=== PATIENT | male | born 1935 | race Caucasian/White ===

== ENCOUNTER 2024-12-14 01:23 | Inpatient (IN) | payer MEDICARE, SELFPAY ==
[2024-12-14 04:07] LABS: #Basophils Less than 0.03 10x3/uL (0.0-0.2); #Eosinophils Less than 0.03 10x3/uL (0.0-0.7); #Monocytes 0.49 10x3/uL (0.11-0.59); #Neutrophils 6.48 10x3/uL (1.40-6.50); %Basophils 0.1 % (0.0-1.0); %Eosinophils 0.0 % (0.0-10.0); %Lymphocytes 8.6 % (21.0-51.0); %Monocytes 6.4 % (0.0-10.0); %Neutrophils 84.5 % (42.0-75.0); Hematocrit 34.2 % (42.0-52.0); Hemoglobin 11.0 g/dL (14.0-18.0); Mean Corpuscular Hemoglobin 28.4 pg (27.0-31.0); Mean Corpuscular Volume 88.1 fL (78.0-98.0); Platelet Count 156 10x3/uL (130-400); Red Blood Cell (RBC) Count 3.88 mill/uL (4.70-6.10); White Blood Cell (WBC) Count 7.67 10x3/uL (4.8-10.8)
[2024-12-14 04:32] LABS: ALT (SGPT) 176 U/L (Less than 45); AST (SGOT) 219 U/L (11-34); Albumin 3.5 g/dL (3.1-4.5); Alkaline Phosphatase 73 U/L (40-110); Anion Gap 19 mmol/L (10-20); BUN (Urea Nitrogen) 16 mg/dL (8.4-25.7); Bilirubin, Total 1.9 mg/dL (0.3-1.2); Calc. Creatinine Clearance 0 mL/min (70-130); Calcium 8.7 mg/dL (7.8-10.44); Carbon Dioxide 16 mmol/L (23-31); Chloride 89 mmol/L (98-107); Globulin 3.8 g/dL (2.4-3.5); Glucose 98 mg/dL (83-110); Potassium 4.5 mmol/L (3.5-5.1); Sodium 119 mmol/L (136-145)
[2024-12-14 06:11] LABS: Actual Bicarbonate (HCO3v) 16.2 mEq/L (22-28); Analyzer IN Cardio ER; Base Excess -8.6 mEq/L (-2.0 to +3.0); Calcium, Ionized (venous) 1.03 mmol/L (1.16-1.32); Chloride (VBG) 88 mmol/L (98-106); Hematocrit-VBG 36 % (42.0-52.0); Hemoglobin (Hb) 12.3 g/dL (12.6-17.4); Potassium (VBG) 4.80 mmol/L (3.70-5.30); Sodium 121 mmol/L (133-146)
[2024-12-14 06:51] LABS: Osmolality, Serum 256 mOsm/kg (280-301)
[2024-12-14 06:59] LABS: Anion Gap 19 mmol/L (10-20); BUN (Urea Nitrogen) 18 mg/dL (8.4-25.7); Calc. Creatinine Clearance 0 mL/min (70-130); Calcium 8.6 mg/dL (7.8-10.44); Carbon Dioxide 12 mmol/L (23-31); Chloride 90 mmol/L (98-107); Glucose 86 mg/dL (83-110); Potassium 5.0 mmol/L (3.5-5.1); Sodium 116 mmol/L (136-145)
[2024-12-14] MEDS: Admixture Fee 1 EACH in Sodium Chloride 3% 100 ML IVPB SCH (07:06)
[2024-12-14 07:59] VITALS: BMI 35.6
[2024-12-14] MEDS ORDERED: VANC IVPB PRN (08:45)
[2024-12-14 08:57] LABS: Glucose, Urine (Dipstick) Negative (Negative); Leukocyte Negative (Negative); Protein, Urine (Dipstick) 30 mg/dL (Neg-Trace); Specific Gravity, Urine Greater/Equal 1.030 (1.005-1.030)
[2024-12-14 09:11] LABS: Bacteria/HPF 4+ HPF (None Seen); CAUTI Indications for Culture Alt mental st,lethar
[2024-12-14 09:12] LABS: Urine Culture Reflex No No
[2024-12-14 09:45] LABS: Osmolality, Urine 422 mOsm/kg (50-1200)
[2024-12-14 09:58] LABS: INR-International Normal Ratio 2.8; PTT 40.1 sec (22.9-36.1); Prothrombin Time 29.8 sec (12.0-14.7)
[2024-12-14] MEDS ORDERED: Iopamidol-370 76% 500 ML MDV (1 ML CHARGE) ONE (10:43)
[2024-12-14] MEDS: VANCOMYCIN 2 GRAM/400 ML BAG 2 GM in Premix 1 BAG IVPB SCH (10:59)
[2024-12-14] MEDS: Vancomycin 1 GM in Premix 1 BAG IVPB SCH (11:28)
[2024-12-14 11:34] LABS: Anion Gap 25 mmol/L (10-20); BUN (Urea Nitrogen) 20 mg/dL (8.4-25.7); Calc. Creatinine Clearance 68 mL/min (70-130); Calcium 8.8 mg/dL (7.8-10.44); Carbon Dioxide 10 mmol/L (23-31); Chloride 90 mmol/L (98-107); Glucose 65 mg/dL (83-110); Potassium 5.0 mmol/L (3.5-5.1); Sodium 120 mmol/L (136-145)
[2024-12-14] MEDS ORDERED: Glucagon 1 MG/ML KIT IM PRN (11:59)
[2024-12-14 12:53] LABS: Base Excess -10.0 mEq/L (-2.0 to +3.0); Calcium, Ionized (venous) 1.00 mmol/L (1.16-1.32); Chloride (VBG) 90 mmol/L (98-106); Hematocrit-VBG 34 % (42.0-52.0); Hemoglobin (Hb) 11.4 g/dL (12.6-17.4); Potassium (VBG) 4.56 mmol/L (3.70-5.30); Sodium 121 mmol/L (133-146)
[2024-12-14 12:56] LABS: Actual Bicarbonate (HCO3v) 14.3 mEq/L (22-28)
[2024-12-14 13:17] LABS: #Basophils Less than 0.03 10x3/uL (0.0-0.2); #Eosinophils Less than 0.03 10x3/uL (0.0-0.7); #Monocytes 0.96 10x3/uL (0.11-0.59); #Neutrophils 10.98 10x3/uL (1.40-6.50); %Basophils 0.1 % (0.0-1.0); %Eosinophils 0.0 % (0.0-10.0); %Lymphocytes 4.8 % (21.0-51.0); %Monocytes 7.6 % (0.0-10.0); %Neutrophils 87.0 % (42.0-75.0); Hematocrit 30.5 % (42.0-52.0); Hemoglobin 10.0 g/dL (14.0-18.0); Mean Corpuscular Hemoglobin 29.2 pg (27.0-31.0); Mean Corpuscular Volume 88.9 fL (78.0-98.0); Platelet Count 124 10x3/uL (130-400); Red Blood Cell (RBC) Count 3.43 mill/uL (4.70-6.10); White Blood Cell (WBC) Count 12.61 10x3/uL (4.8-10.8)
[2024-12-14 13:30] LABS: ALT (SGPT) 1045 U/L (Less than 45); AST (SGOT) 1497 U/L (11-34); Albumin 3.2 g/dL (3.1-4.5); Alkaline Phosphatase 64 U/L (40-110); Bilirubin, Direct 1.4 mg/dL (0.1-0.3); Bilirubin, Total 2.2 mg/dL (0.3-1.2)
[2024-12-14 13:44] LABS: ALT (SGPT) 1054 U/L (Less than 45); AST (SGOT) 1495 U/L (11-34); Albumin 3.2 g/dL (3.1-4.5); Alkaline Phosphatase 65 U/L (40-110); Anion Gap 21 mmol/L (10-20); Anion Gap 22 mmol/L (10-20); BUN (Urea Nitrogen) 20 mg/dL (8.4-25.7); Bilirubin, Total 2.2 mg/dL (0.3-1.2); Calc. Creatinine Clearance 71 mL/min (70-130); Calc. Creatinine Clearance 72 mL/min (70-130); Calcium 8.4 mg/dL (7.8-10.44); Carbon Dioxide 12 mmol/L (23-31); Carbon Dioxide 13 mmol/L (23-31); Chloride 90 mmol/L (98-107); Globulin 3.2 g/dL (2.4-3.5); Glucose 65 mg/dL (83-110); Glucose 66 mg/dL (83-110); Potassium 4.6 mmol/L (3.5-5.1); Potassium 4.7 mmol/L (3.5-5.1); Sodium 119 mmol/L (136-145)
[2024-12-14] MEDS: Pantoprazole 40 MG VIAL IVP SCH ×2 (15:00→20:06)
[2024-12-14 16:50] LABS: Hep A IgM AB NONREACTIVE (NonReactive); Hep A IgM S/CO 0.12 S/CO (0-0.79); Hep B Core IgM Index 0.08 S/CO (0-0.79); Hep B Surf Ag NONREACTIVE S/CO (NonReactive); Hep C IgG Ab NONREACTIVE S/CO (NonReactive); Hep C Index 0.10 S/CO (0-0.79)
[2024-12-14 17:04] LABS: Cocaine Metabolite Screen Negative (Negative); THC/Cannabinoid Screen Negative (Negative); Tricyclic Screen Negative (Negative)
[2024-12-14 17:58] LABS: Anion Gap 24 mmol/L (10-20); BUN (Urea Nitrogen) 22 mg/dL (8.4-25.7); Calc. Creatinine Clearance 65 mL/min (70-130); Calcium 9.0 mg/dL (7.8-10.44); Carbon Dioxide 12 mmol/L (23-31); Chloride 91 mmol/L (98-107); Glucose 57 mg/dL (83-110); Potassium 5.1 mmol/L (3.5-5.1); Sodium 122 mmol/L (136-145)
[2024-12-14] MEDS: Furosemide 40 MG (4 mL) VIAL SLOW IVP SCH (18:05)
[2024-12-14] MEDS: Dextrose 50% Abboject 50 ML SYRINGE SLOW IVP PRN (18:05)
[2024-12-14] MEDS: Vancomycin HCl 750 MG in Sodium Chloride 0.9% 250 ML 250 ML IVPB SCH (21:59)
[2024-12-15 05:42] LABS: Vancomycin, Random 19.9 ug/mL (See Comment)
[2024-12-15 05:45] LABS: ALT (SGPT) 1688 U/L (Less than 45); AST (SGOT) 2422 U/L (11-34); Albumin 3.3 g/dL (3.1-4.5); Alkaline Phosphatase 73 U/L (40-110); Anion Gap 15 mmol/L (10-20); BUN (Urea Nitrogen) 25 mg/dL (8.4-25.7); Bilirubin, Total 1.7 mg/dL (0.3-1.2); Calc. Creatinine Clearance 69 mL/min (70-130); Calcium 8.5 mg/dL (7.8-10.44); Carbon Dioxide 24 mmol/L (23-31); Chloride 90 mmol/L (98-107); Globulin 3.3 g/dL (2.4-3.5); Glucose 70 mg/dL (83-110); Magnesium 1.7 mg/dL (1.6-2.6); Potassium 4.3 mmol/L (3.5-5.1); Sodium 125 mmol/L (136-145)
[2024-12-15 05:51] LABS: INR-International Normal Ratio 3.3; PTT 45.7 sec (22.9-36.1); Prothrombin Time 34.0 sec (12.0-14.7)
[2024-12-15 05:57] LABS: #Basophils Less than 0.03 10x3/uL (0.0-0.2); #Eosinophils Less than 0.03 10x3/uL (0.0-0.7); #Monocytes 0.47 10x3/uL (0.11-0.59); #Neutrophils 9.69 10x3/uL (1.40-6.50); %Basophils 0.1 % (0.0-1.0); %Eosinophils 0.1 % (0.0-10.0); %Lymphocytes 5.2 % (21.0-51.0); %Monocytes 4.4 % (0.0-10.0); %Neutrophils 89.6 % (42.0-75.0); Hematocrit 32.2 % (42.0-52.0); Hemoglobin 10.8 g/dL (14.0-18.0); Mean Corpuscular Hemoglobin 29.0 pg (27.0-31.0); Mean Corpuscular Volume 86.6 fL (78.0-98.0); Platelet Count 127 10x3/uL (130-400); Red Blood Cell (RBC) Count 3.72 mill/uL (4.70-6.10); White Blood Cell (WBC) Count 10.80 10x3/uL (4.8-10.8)
[2024-12-15] MEDS ORDERED: Digoxin 0.125 MG TAB PO PRN (09:14)
[2024-12-15 09:28] LABS: Digoxin Less than 0.19 ng/mL (0.8-2.0)
[2024-12-15] MEDS: Enoxaparin 100 MG (1 mL) SYRINGE SC SCH ×2 (10:12→21:51)
[2024-12-15 15:27] LABS: Acetaminophen Less than 10 mcg/mL (Less than 10)
[2024-12-15 18:51] LABS: Anion Gap 14 mmol/L (10-20); BUN (Urea Nitrogen) 26 mg/dL (8.4-25.7); CK (CPK) 778 U/L (30-200); Calc. Creatinine Clearance 75 mL/min (70-130); Calcium 8.5 mg/dL (7.8-10.44); Carbon Dioxide 26 mmol/L (23-31); Chloride 90 mmol/L (98-107); Glucose 91 mg/dL (83-110); Potassium 4.3 mmol/L (3.5-5.1); Sodium 126 mmol/L (136-145)
[2024-12-15] MEDS ORDERED: Enoxaparin 40 MG (0.4 mL) SYRINGE SC SCH (21:00)
[2024-12-16] MEDS: HYDROcodone/Acetaminophen 5/325 mg Tablet PO SCH (02:42)
[2024-12-16 05:58] LABS: ALT (SGPT) 1524 U/L (Less than 45); AST (SGOT) 1569 U/L (11-34); Albumin 3.1 g/dL (3.1-4.5); Alkaline Phosphatase 91 U/L (40-110); Anion Gap 19 mmol/L (10-20); BUN (Urea Nitrogen) 33 mg/dL (8.4-25.7); Bilirubin, Total 1.9 mg/dL (0.3-1.2); Calc. Creatinine Clearance 51 mL/min (70-130); Calcium 8.2 mg/dL (7.8-10.44); Carbon Dioxide 22 mmol/L (23-31); Chloride 90 mmol/L (98-107); Globulin 3.1 g/dL (2.4-3.5); Glucose 74 mg/dL (83-110); Magnesium 1.8 mg/dL (1.6-2.6); Potassium 4.4 mmol/L (3.5-5.1); Sodium 127 mmol/L (136-145)
[2024-12-16 06:11] LABS: Vancomycin, Random 24.7 ug/mL (See Comment)
[2024-12-16 06:34] LABS: #Basophils Less than 0.03 10x3/uL (0.0-0.2); #Eosinophils Less than 0.03 10x3/uL (0.0-0.7); #Monocytes 0.69 10x3/uL (0.11-0.59); #Neutrophils 7.16 10x3/uL (1.40-6.50); %Basophils 0.1 % (0.0-1.0); %Eosinophils 0.0 % (0.0-10.0); %Lymphocytes 15.5 % (21.0-51.0); %Monocytes 7.4 % (0.0-10.0); %Neutrophils 76.6 % (42.0-75.0); Hematocrit 32.3 % (42.0-52.0); Hemoglobin 10.6 g/dL (14.0-18.0); Mean Corpuscular Hemoglobin 28.6 pg (27.0-31.0); Mean Corpuscular Volume 87.1 fL (78.0-98.0); Platelet Count 111 10x3/uL (130-400); Red Blood Cell (RBC) Count 3.71 mill/uL (4.70-6.10); White Blood Cell (WBC) Count 9.35 10x3/uL (4.8-10.8)
[2024-12-16] MEDS ORDERED: Amiodarone 200 MG TAB PO SCH (09:00)
[2024-12-16] MEDS: cefTRIAXone\\ROCEPHIN 1 GM in Sodium Chloride 0.9% 100 ML IVPB SCH (15:00)
[2024-12-16] MEDS: Furosemide 20 MG (2 mL) VIAL SLOW IVP SCH (16:16)
[2024-12-16] MEDS: Lactulose 20 GM (30 mL) UDCUP PO SCH (21:13)
[2024-12-16] MEDS: Famotidine 20 MG TAB PO SCH (21:13)
[2024-12-16] MEDS: Acetaminophen 325 MG TAB PO PRN (21:13)
[2024-12-16 22:15] LABS: #Basophils Less than 0.03 10x3/uL (0.0-0.2); #Eosinophils Less than 0.03 10x3/uL (0.0-0.7); #Monocytes 1.01 10x3/uL (0.11-0.59); #Neutrophils 8.09 10x3/uL (1.40-6.50); %Basophils 0.1 % (0.0-1.0); %Eosinophils 0.2 % (0.0-10.0); %Lymphocytes 11.0 % (21.0-51.0); %Monocytes 9.8 % (0.0-10.0); %Neutrophils 78.4 % (42.0-75.0); Hematocrit 34.6 % (42.0-52.0); Hemoglobin 11.0 g/dL (14.0-18.0); Mean Corpuscular Hemoglobin 28.6 pg (27.0-31.0); Mean Corpuscular Volume 89.9 fL (78.0-98.0); Platelet Count 91 10x3/uL (130-400); Red Blood Cell (RBC) Count 3.85 mill/uL (4.70-6.10); White Blood Cell (WBC) Count 10.32 10x3/uL (4.8-10.8)
[2024-12-16] MEDS: Furosemide 40 MG (4 mL) VIAL SLOW IVP SCH (23:15)
[2024-12-17] MEDS: Enoxaparin 40 MG (0.4 mL) SYRINGE SC SCH (00:21)
[2024-12-17 05:28] LABS: INR-International Normal Ratio 3.6; Prothrombin Time 36.4 sec (12.0-14.7)
[2024-12-17 05:29] LABS: #Basophils Less than 0.03 10x3/uL (0.0-0.2); #Eosinophils 0.03 10x3/uL (0.0-0.7); #Monocytes 0.61 10x3/uL (0.11-0.59); #Neutrophils 6.30 10x3/uL (1.40-6.50); %Basophils 0.1 % (0.0-1.0); %Eosinophils 0.4 % (0.0-10.0); %Lymphocytes 8.5 % (21.0-51.0); %Monocytes 8.0 % (0.0-10.0); %Neutrophils 82.6 % (42.0-75.0); Hematocrit 29.9 % (42.0-52.0); Hemoglobin 10.0 g/dL (14.0-18.0); Mean Corpuscular Hemoglobin 28.9 pg (27.0-31.0); Mean Corpuscular Volume 86.4 fL (78.0-98.0); Platelet Count 95 10x3/uL (130-400); Red Blood Cell (RBC) Count 3.46 mill/uL (4.70-6.10); White Blood Cell (WBC) Count 7.63 10x3/uL (4.8-10.8)
[2024-12-17 06:05] LABS: ALT (SGPT) 1401 U/L (Less than 45); AST (SGOT) 1250 U/L (11-34); Albumin 2.9 g/dL (3.1-4.5); Alkaline Phosphatase 96 U/L (40-110); Anion Gap 14 mmol/L (10-20); BUN (Urea Nitrogen) 50 mg/dL (8.4-25.7); Bilirubin, Total 2.0 mg/dL (0.3-1.2); CK (CPK) 516 U/L (30-200); Calc. Creatinine Clearance 31 mL/min (70-130); Calcium 8.2 mg/dL (7.8-10.44); Carbon Dioxide 26 mmol/L (23-31); Chloride 91 mmol/L (98-107); Globulin 3.3 g/dL (2.4-3.5); Glucose 138 mg/dL (83-110); Magnesium 1.8 mg/dL (1.6-2.6); Potassium 3.8 mmol/L (3.5-5.1); Sodium 127 mmol/L (136-145)
[2024-12-17] MEDS: Mupirocin 1 GM TUBE NASAL SCH (08:47)
[2024-12-17] MEDS: Lactulose 20 GM (30 mL) UDCUP PO SCH ×2 (08:47→22:01)
[2024-12-17] MEDS ORDERED: Furosemide 40 MG (4 mL) VIAL SLOW IVP SCH (09:00)
[2024-12-17 09:15] LABS: Sodium, Urine Less than 20 mmol/L (Not Available); Urea Nitrogen, Random Urine 257 mg/dl
[2024-12-17] MEDS: Albumin 25% 25 GM (100 mL) BOT IVPB SCH (13:42)
[2024-12-17] MEDS: Rifaximin 550 MG TAB PO SCH (22:02)
[2024-12-17] MEDS: Enoxaparin 100 MG (1 mL) SYRINGE SC SCH (23:22)
[2024-12-18 04:45] LABS: #Basophils Less than 0.03 10x3/uL (0.0-0.2); #Eosinophils 0.04 10x3/uL (0.0-0.7); #Monocytes 0.75 10x3/uL (0.11-0.59); #Neutrophils 4.42 10x3/uL (1.40-6.50); %Basophils 0.2 % (0.0-1.0); %Eosinophils 0.6 % (0.0-10.0); %Lymphocytes 16.5 % (21.0-51.0); %Monocytes 11.9 % (0.0-10.0); %Neutrophils 70.2 % (42.0-75.0); Hematocrit 28.5 % (42.0-52.0); Hemoglobin 9.8 g/dL (14.0-18.0); Mean Corpuscular Hemoglobin 29.7 pg (27.0-31.0); Mean Corpuscular Volume 86.4 fL (78.0-98.0); Platelet Count 83 10x3/uL (130-400); Red Blood Cell (RBC) Count 3.30 mill/uL (4.70-6.10); White Blood Cell (WBC) Count 6.30 10x3/uL (4.8-10.8)
[2024-12-18 04:51] LABS: INR-International Normal Ratio 2.3; Prothrombin Time 25.6 sec (12.0-14.7)
[2024-12-18 05:12] LABS: ALT (SGPT) 1054 U/L (Less than 45); AST (SGOT) 600 U/L (11-34); Albumin 3.2 g/dL (3.1-4.5); Alkaline Phosphatase 95 U/L (40-110); Anion Gap 9 mmol/L (10-20); BUN (Urea Nitrogen) 48 mg/dL (8.4-25.7); Bilirubin, Total 1.6 mg/dL (0.3-1.2); CK (CPK) 283 U/L (30-200); Calc. Creatinine Clearance 37 mL/min (70-130); Calcium 8.1 mg/dL (7.8-10.44); Carbon Dioxide 21 mmol/L (23-31); Chloride 99 mmol/L (98-107); Globulin 3.0 g/dL (2.4-3.5); Glucose 136 mg/dL (83-110); Potassium 3.5 mmol/L (3.5-5.1); Sodium 125 mmol/L (136-145)
[2024-12-18 08:48] LABS: Iron 17 ug/dL (65-175); Iron Binding Capacity, Total 268 mcg/dL (261-462)
[2024-12-18] MEDS: Albumin 25% 25 GM (100 mL) BOT IVPB SCH (09:10)
[2024-12-18] MEDS: Dapagliflozin Propanediol 10 MG TAB PO SCH (09:11)
[2024-12-19 05:06] LABS: INR-International Normal Ratio 1.8; Prothrombin Time 20.6 sec (12.0-14.7)
[2024-12-19] MEDS: Metoprolol Succinate XL 25 MG ER.TAB PO SCH (09:00)
[2024-12-19 09:03] LABS: ALT (SGPT) 766 U/L (Less than 45); AST (SGOT) 290 U/L (11-34); Albumin 3.3 g/dL (3.1-4.5); Alkaline Phosphatase 93 U/L (40-110); Anion Gap 15 mmol/L (10-20); BUN (Urea Nitrogen) 40 mg/dL (8.4-25.7); Bilirubin, Total 1.5 mg/dL (0.3-1.2); Calc. Creatinine Clearance 60 mL/min (70-130); Calcium 8.4 mg/dL (7.8-10.44); Carbon Dioxide 26 mmol/L (23-31); Chloride 91 mmol/L (98-107); Globulin 3.1 g/dL (2.4-3.5); Glucose 107 mg/dL (83-110); Magnesium 2.1 mg/dL (1.6-2.6); Potassium 3.3 mmol/L (3.5-5.1); Sodium 129 mmol/L (136-145)
[2024-12-19] MEDS: Potassium Phosphate 30 MMOL in Sodium Chloride 0.9% 250 ML 250 ML IVPB SCH (11:49)
[2024-12-19] MEDS: Sodium Ferric Gluconate 250 MG in Sodium Chloride 0.9% 250 ML 250 ML IVPB SCH ×2 (14:48→21:31)
[2024-12-19] MEDS: cefTRIAXone\\ROCEPHIN 1 GM in Sodium Chloride 0.9% 100 ML IVPB SCH (18:27)
[2024-12-20 05:14] LABS: #Basophils Less than 0.03 10x3/uL (0.0-0.2); #Eosinophils 0.08 10x3/uL (0.0-0.7); #Monocytes 0.73 10x3/uL (0.11-0.59); #Neutrophils 4.17 10x3/uL (1.40-6.50); %Basophils 0.2 % (0.0-1.0); %Eosinophils 1.3 % (0.0-10.0); %Lymphocytes 16.9 % (21.0-51.0); %Monocytes 12.1 % (0.0-10.0); %Neutrophils 69.2 % (42.0-75.0); Hematocrit 29.3 % (42.0-52.0); Hemoglobin 9.9 g/dL (14.0-18.0); Mean Corpuscular Hemoglobin 28.4 pg (27.0-31.0); Mean Corpuscular Volume 84.2 fL (78.0-98.0); Platelet Count 91 10x3/uL (130-400); Red Blood Cell (RBC) Count 3.48 mill/uL (4.70-6.10); White Blood Cell (WBC) Count 6.03 10x3/uL (4.8-10.8)
[2024-12-20 05:47] LABS: Anion Gap 13 mmol/L (10-20); BUN (Urea Nitrogen) 26 mg/dL (8.4-25.7); Calc. Creatinine Clearance 67 mL/min (70-130); Carbon Dioxide 26 mmol/L (23-31); Chloride 93 mmol/L (98-107); Potassium 3.4 mmol/L (3.5-5.1); Sodium 129 mmol/L (136-145)
[2024-12-20 05:48] LABS: ALT (SGPT) 617 U/L (Less than 45); AST (SGOT) 178 U/L (11-34); Albumin 3.2 g/dL (3.1-4.5); Alkaline Phosphatase 100 U/L (40-110); Bilirubin, Total 1.3 mg/dL (0.3-1.2); Calcium 8.2 mg/dL (7.8-10.44); Globulin 3.1 g/dL (2.4-3.5); Glucose 124 mg/dL (83-110)
[2024-12-20] MEDS: Spironolactone 25 MG TAB PO SCH (09:46)
[2024-12-20] MEDS: Lactulose 20 GM (30 mL) UDCUP PO SCH (09:46)
[2024-12-20] MEDS: Apixaban 5 MG TAB PO SCH (20:07)
[2024-12-21 06:55] LABS: ALT (SGPT) 477 U/L (Less than 45); AST (SGOT) 127 U/L (11-34); Albumin 3.0 g/dL (3.1-4.5); Alkaline Phosphatase 94 U/L (40-110); Anion Gap 13 mmol/L (10-20); BUN (Urea Nitrogen) 15 mg/dL (8.4-25.7); Bilirubin, Total 1.4 mg/dL (0.3-1.2); Calc. Creatinine Clearance 106 mL/min (70-130); Calcium 8.4 mg/dL (7.8-10.44); Carbon Dioxide 23 mmol/L (23-31); Chloride 99 mmol/L (98-107); Globulin 3.8 g/dL (2.4-3.5); Glucose 104 mg/dL (83-110); Magnesium 1.9 mg/dL (1.6-2.6); Potassium 4.7 mmol/L (3.5-5.1); Sodium 130 mmol/L (136-145)
[2024-12-21] MEDS: SODIUM PHOSPHATE IVPB SCH (10:03)
[2024-12-21] MEDS: SODIUM CHLORIDE 0.9% IVPB SCH (10:03)
[2024-12-21] MEDS: Famotidine 20 MG TAB PO SCH (10:04)
[2024-12-21] MEDS: Spironolactone 25 MG TAB PO SCH (10:05)
[2024-12-21 16:04] VITALS: BP 168/79; TEMP 97.4
== END 2024-12-21 17:05 | disposition home health service (06) | DRG 871 ==
LOC: ERS 01:23 → ERHOLD 05:54 → CCU 06:55 → 2NO 12-15 20:56
PROVIDERS: ADMIT Internal Medicine; ATTEND Internal Medicine
PROC: 3E03329 Introduction of Other Anti-infective into Peripheral Vein, Percutaneous Approach (ICD-10-PCS; principal; 2024-12-14)
PROC: 05HY33Z Insertion of Infusion Device into Upper Vein, Percutaneous Approach (ICD-10-PCS; 2024-12-15)
PROC: 30233J1 Transfusion of Nonautologous Serum Albumin into Peripheral Vein, Percutaneous Approach (ICD-10-PCS; 2024-12-18)
DX: A41.51 Sepsis due to Escherichia coli [E. coli] (principal); G93.41 Metabolic encephalopathy; I50.21 Acute systolic (congestive) heart failure; J18.9 Pneumonia, unspecified organism; N17.0 Acute kidney failure with tubular necrosis; N39.0 Urinary tract infection, site not specified; E87.21 Acute metabolic acidosis; M62.82 Rhabdomyolysis; E22.2 Syndrome of inappropriate secretion of antidiuretic hormone; I42.9 Cardiomyopathy, unspecified; D68.9 Coagulation defect, unspecified; I13.0 Hypertensive heart and chronic kidney disease with heart failure and stage 1 through stage 4 chronic kidney disease, or unspecified chronic kidney disease; Z66 Do not resuscitate; I25.10 Atherosclerotic heart disease of native coronary artery without angina pectoris; E78.5 Hyperlipidemia, unspecified; I48.91 Unspecified atrial fibrillation; Z98.890 Other specified postprocedural states; Z88.0 Allergy status to penicillin; E16.2 Hypoglycemia, unspecified; E86.0 Dehydration; K76.82 Hepatic encephalopathy; N18.9 Chronic kidney disease, unspecified; E87.6 Hypokalemia; E83.39 Other disorders of phosphorus metabolism; Z79.899 Other long term (current) drug therapy; Z85.51 Personal history of malignant neoplasm of bladder; Z78.1 Physical restraint status; E03.9 Hypothyroidism, unspecified; Z87.891 Personal history of nicotine dependence; Z79.01 Long term (current) use of anticoagulants; Z79.84 Long term (current) use of oral hypoglycemic drugs; Z79.890 Hormone replacement therapy; N32.89 Other specified disorders of bladder; I50.810 Right heart failure, unspecified; I27.20 Pulmonary hypertension, unspecified; D69.6 Thrombocytopenia, unspecified; R65.20 Severe sepsis without septic shock; E11.22 Type 2 diabetes mellitus with diabetic chronic kidney disease; D63.1 Anemia in chronic kidney disease; K80.20 Calculus of gallbladder without cholecystitis without obstruction; K76.1 Chronic passive congestion of liver; N40.1 Benign prostatic hyperplasia with lower urinary tract symptoms; R33.8 Other retention of urine
CPT/HCPCS: 36415; 36416; 70450; 71045; 74174; 74176; 76705; 78226; 80053; 80074; 80143; 80162; 80202; 80306; 81001; 82043; 82140; 82550; 82570; 82728; 82805; 83540; 83550; 83605; 83735; 83880; 83930; 83935; 84100; 84300; 84540; 85025; 85610; 85730; 87040; 87077; 87081; 87086; 87186; 93005; 93306; 96374; 80307; A9537; J0696; J1650; J1940; J2060; J2185; J2470; J2916; J3010; J3373; J3375; J3430; J7030; J7050; J7131; J7620; J7999; P9047; Q9967

== ENCOUNTER 2024-12-26 07:51 | Observation (INO) | payer MEDICARE, SELFPAY ==
[2024-12-26 08:27] LABS: #Basophils Less than 0.03 10x3/uL (0.0-0.2); #Eosinophils 0.03 10x3/uL (0.0-0.7); #Monocytes 0.56 10x3/uL (0.11-0.59); #Neutrophils 6.65 10x3/uL (1.40-6.50); %Basophils 0.1 % (0.0-1.0); %Eosinophils 0.3 % (0.0-10.0); %Lymphocytes 15.3 % (21.0-51.0); %Monocytes 6.5 % (0.0-10.0); %Neutrophils 77.5 % (42.0-75.0); Hematocrit 34.7 % (42.0-52.0); Hemoglobin 11.4 g/dL (14.0-18.0); Mean Corpuscular Hemoglobin 28.9 pg (27.0-31.0); Mean Corpuscular Volume 87.8 fL (78.0-98.0); Platelet Count 174 10x3/uL (130-400); Red Blood Cell (RBC) Count 3.95 mill/uL (4.70-6.10); White Blood Cell (WBC) Count 8.60 10x3/uL (4.8-10.8)
[2024-12-26 08:46] LABS: ALT (SGPT) 185 U/L (Less than 45); AST (SGOT) 41 U/L (11-34); Albumin 3.6 g/dL (3.1-4.5); Alkaline Phosphatase 73 U/L (40-110); Anion Gap 13 mmol/L (10-20); BUN (Urea Nitrogen) 9 mg/dL (8.4-25.7); Bilirubin, Total 1.9 mg/dL (0.3-1.2); Calc. Creatinine Clearance 0 mL/min (70-130); Calcium 9.3 mg/dL (7.8-10.44); Carbon Dioxide 23 mmol/L (23-31); Chloride 98 mmol/L (98-107); Globulin 4.0 g/dL (2.4-3.5); Glucose 109 mg/dL (83-110); Potassium 4.0 mmol/L (3.5-5.1); Sodium 130 mmol/L (136-145)
[2024-12-26 10:28] LABS: CAUTI Indications for Culture Dysuria,urgency,freq; Glucose, Urine (Dipstick) Greater than 1000 mg/dL (Negative); Leukocyte 500 Leu/uL (Negative); Protein, Urine (Dipstick) 10 mg/dL (Neg-Trace); RBC/HPF 21-50 HPF (0-3); Specific Gravity, Urine 1.019 (1.002-1.036); WBC/HPF Greater than 50 HPF (0-3); Yeast-Budding 1+ HPF (None Seen); Yeast-Hyphae 1+ HPF (None Seen)
[2024-12-26 10:30] LABS: Bacteria/HPF 1+ HPF (None Seen)
[2024-12-26 10:31] LABS: Urine Culture Reflex Yes Yes
[2024-12-26] MEDS ORDERED: Iopamidol-370 76% 500 ML MDV (1 ML CHARGE) ONE (12:28)
[2024-12-26] MEDS ORDERED: Acetaminophen/Codeine 30-300mg Tablet PO PRN (15:16)
[2024-12-26] MEDS ORDERED: Guaifenesin DM 100-10/5 ML UDCUP PO PRN (15:16)
[2024-12-26 17:27] VITALS: BMI 33.0
[2024-12-26] MEDS: Apixaban 5 MG TAB PO SCH (21:29)
[2024-12-27 04:56] LABS: ALT (SGPT) 125 U/L (Less than 45); AST (SGOT) 34 U/L (11-34); Albumin 3.0 g/dL (3.1-4.5); Alkaline Phosphatase 65 U/L (40-110); Anion Gap 7 mmol/L (10-20); BUN (Urea Nitrogen) 8 mg/dL (8.4-25.7); Bilirubin, Total 1.5 mg/dL (0.3-1.2); Calc. Creatinine Clearance 85 mL/min (70-130); Calcium 8.6 mg/dL (7.8-10.44); Carbon Dioxide 25 mmol/L (23-31); Chloride 101 mmol/L (98-107); Globulin 3.1 g/dL (2.4-3.5); Glucose 118 mg/dL (83-110); Potassium 3.2 mmol/L (3.5-5.1); Sodium 130 mmol/L (136-145)
[2024-12-27 05:46] LABS: #Basophils Less than 0.03 10x3/uL (0.0-0.2); #Eosinophils 0.12 10x3/uL (0.0-0.7); #Monocytes 0.54 10x3/uL (0.11-0.59); #Neutrophils 4.69 10x3/uL (1.40-6.50); %Basophils 0.1 % (0.0-1.0); %Eosinophils 1.8 % (0.0-10.0); %Lymphocytes 19.9 % (21.0-51.0); %Monocytes 8.0 % (0.0-10.0); %Neutrophils 69.8 % (42.0-75.0); Hematocrit 31.4 % (42.0-52.0); Hemoglobin 10.2 g/dL (14.0-18.0); Mean Corpuscular Hemoglobin 28.8 pg (27.0-31.0); Mean Corpuscular Volume 88.7 fL (78.0-98.0); Platelet Count 173 10x3/uL (130-400); Red Blood Cell (RBC) Count 3.54 mill/uL (4.70-6.10); White Blood Cell (WBC) Count 6.73 10x3/uL (4.8-10.8)
[2024-12-27 07:36] VITALS: BP 141/65; TEMP 97.6
[2024-12-27] MEDS: Dapagliflozin Propanediol 10 MG TAB PO SCH (09:15)
[2024-12-27] MEDS: Furosemide 40 MG (4 mL) VIAL SLOW IVP SCH (11:10)
[2024-12-27 11:28] LABS: Magnesium 1.6 mg/dL (1.6-2.6)
[2024-12-27] MEDS ORDERED: Magnesium 2 GM/50 ML(in water) 2 GM in Premix 1 BAG IVPB SCH (12:00)
== END 2024-12-27 12:01 | disposition home health service (06) ==
LOC: ERS 07:51 → INTOOBSV 16:39 → 2NO 16:39
PROVIDERS: ADMIT Internal Medicine; ATTEND Internal Medicine
DX: T83.090A Other mechanical complication of cystostomy catheter, initial encounter (principal); R79.89 Other specified abnormal findings of blood chemistry; I10 Essential (primary) hypertension; I25.10 Atherosclerotic heart disease of native coronary artery without angina pectoris; E78.5 Hyperlipidemia, unspecified; E87.6 Hypokalemia; Z88.0 Allergy status to penicillin; Z79.01 Long term (current) use of anticoagulants; Z79.899 Other long term (current) drug therapy; Y83.1 Surgical operation with implant of artificial internal device as the cause of abnormal reaction of the patient, or of later complication, without mention of misadventure at the time of the procedure
CPT/HCPCS: 71045; 74177; 80053 ×2; 81001; 83605; 83735; 83880; 84484 ×2; 85025 ×2; 87086; 93005; J1940; 36415; 51798; 96374; G0378; Q9967